=== PATIENT | female | born 1985 ===

== ENCOUNTER 2020-10-01 08:22 | Outpatient (REF) | payer OTHER, SELFPAY ==
[2020-10-01 11:17] LABS: MANUAL DIFF FLAG NO
[2020-10-01 11:42] LABS: Basophils Percent Auto 0.6 % (0-2); Eosinophils Absolute Auto 0.4 X10*3/uL (0.0-0.4); Eosinophils Percent Auto 6.7 % (0-4); Hematocrit 39.5 % (37-47); Hemoglobin 12.9 g/dl (12.0-16.0); Imm Gran Abs Auto 0.02 X10*3/uL (0.00-0.03); Imm Gran Pct Auto 0.4 % (0.0-0.4); Lymphocytes Absolute Auto 1.7 X10*3/uL (1.2-4.9); Lymphocytes Percent Auto 32.6 % (20-40); Mean Corpuscular HGB Conc 32.7 g/dl (31.0-35.0); Mean Corpuscular Hemoglobin 28.5 pg (27.0-33.0); Mean Corpuscular Volume 87.2 fL (80-98); Mean Platelet Volume 10.3 fL (9.4-12.3); Monocytes Absolute Auto 0.3 X10*3/uL (0.1-1.2); Neutrophils Absolute Auto 2.9 X10*3/uL (2.0-8.3); Neutrophils Percent Auto 53.7 % (45-73); Platelet Count 315 X10*3/uL (160-400); Red Blood Count 4.53 X10*6/uL (4.20-5.50); Red Cell Distribution Width 12.5 % (11.0-16.0); White Blood Count 5.3 X10*3/uL (4.8-10.8)
[2020-10-01 12:09] LABS: TSH reflex Free T4 0.81 uIU/mL (0.32-4.0)
== END 2020-10-01 08:23 | disposition home or self-care (01) ==
LOC: HO.LAB 08:22
PROVIDERS: Visit Provider Obstetrics & Gynecology
DX: Z31.9 Encounter for procreative management, unspecified (principal); R10.2 Pelvic and perineal pain; N93.9 Abnormal uterine and vaginal bleeding, unspecified
CPT/HCPCS: 36415; 84443; 85025

== ENCOUNTER 2020-10-21 14:06 | Outpatient (REF) | payer OTHER, SELFPAY ==
--- NOTE | ~2020-10-21 | US_ITS ---
EXAMINATION: US PELVIS CLINICAL INFORMATION: Pain COMPARISON: None TECHNIQUE: Transabdominal and transvaginal pelvic ultrasounds were performed. Transvaginal exam was performed for better visualization of the uterus and ovaries. FINDINGS: Uterus is retroverted and measures 8.3 x 4.1 x 5.1 cm in dimension. No focal uterine lesion is seen. Endometrial thickness is normal measuring 1.5 cm. There are nabothian cysts in the cervix. The ovaries are normal-appearing. The right ovary measures 2.9 x 2.3 x 2.3 cm and the left ovary measures 3.4 x 2.5 x 2.4 cm. There are small bilateral simple cysts measuring 2.0 x 1.3 x 1.6 cm on the right and 1.7 x 1.4 x 1.7 cm on the left. There is a small amount of fluid in the pelvis. US/US pelvic and transvaginal IMPRESSION: Upper normal thickness endometrium. Small bilateral ovarian cysts.
== END 2020-10-21 14:07 | disposition home or self-care (01) ==
LOC: HO.US 14:06
PROVIDERS: Visit Provider Advanced Practice Midwife
DX: R10.2 Pelvic and perineal pain (principal)
CPT/HCPCS: 76830; 76856

== ENCOUNTER → 2020-11-04 10:15 | Outpatient (BNVA) | payer OTHER, SELFPAY | PROVIDERS: Visit Provider Obstetrics & Gynecology ==